=== PATIENT | male | born 1975 | race Caucasian/White ===

== ENCOUNTER 2024-07-27 14:48 | Outpatient (CLI) | payer MEDICARE, OTHER, SELFPAY ==
--- NOTE | ~2024-07-27 | XR_ITS ---
Lumbosacral Spine: AP, oblique, and lateral views Clinical History: Pain Findings: The normal lordotic curve is maintained. No fracture or sublocation. There is moderate dege nerative disc narrowing at L5-S1. There is advanced facet arthropathy at L4-L5 and L5-S1. The sacroil iac joints are normally outlined. Impression: Moderate degenerative spondylosis at the lower lumbar spine, as detailed above. Reviewed, dictated and finalized at location . Impression: Moderate degenerative spondylosis at the lower lumbar spine, as detailed above.
--- OUTSIDE RECORDS SUMMARY | 2024-07-27 15:00 | XMS_ITS | Clinical Summary ---
Author Organization [facility] Address [address] [place] [address] Care Team Providers Care Managed Care Provider Name Role Phone Dorian Garrett MD Primary Care Provider [phone] Source Comments [facility],non-owned Affiliates and Associated Physician Practices is amultiple site organization consisting of ambulatory clinics and hospital sitesin [place], [place], [place] and [place]. This disclosure is being madepursuant to the Care Everywhere program and may not contain all information available regarding this patient. 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 01/22/2015 Closed fracture of mandible 01/22/2015 Closed fracture of maxillary bone 01/22/2015 Closed fracture of facial bones 01/22/2015 Closed fracture of vault of skull 01/22/2015 Closed fracture of orbital floor 01/22/2015 Closed fracture of skull 01/22/2015 Nontraumatic subdural hemorrhage 01/22/2015 Injury 01/21/2015 Immunizations Immunization Administration Dates Next Due FLU VACCINE TRI IIV3 SPLIT PF IM (FLUVIRIN) 01/23 Social History Tobacco Use Types Packs/Day Years Used Date Smoking Tobacco: Never Smokeless Tobacco: Never Alcohol Use Standard Drinks/Week Comments No 0 (1 standard drink = 0.6 oz pur e alcohol) Sex and Gender Information Value Date Recorded Sex Assigned at Not on file Legal Sex Male 6:05 PM PRIMARY CARE COORDINATOR Gender Identity Not on file Sexual Orientation Not on file Last Filed Vital Signs Vital Sign Reading Time Taken Comments Blood Pressure 149/72 02/13/2015 5:00 PM PRIMARY CARE COORDINATOR Pulse 110 02/13/2015 5:00 PM PRIMARY CARE COORDINATOR Temperature 37.1 C (98.8 F) 02/13/2015 4:00 PM PRIMARY CARE COORDINATOR Respiratory Rate 24 02/13/2015 5:00 PM PRIMARY CARE COORDINATOR Oxygen Saturation 99% 02/13/2015 5:00 PM PRIMARY CARE COORDINATOR Inhaled Oxygen Concentration - - Weight 113 kg (249 lb 1.9 oz) 02/13/2015 2:03 AM PRIMARY CARE COORDINATOR Height 182.9 cm (6') 02/01/2015 12:00 PM PRIMARY CARE COORDINATOR Body Mass Index 33.79 02/01/2015 12:00 PM PRIMARY CARE COORDINATOR Plan of Treatment Health Maintenance Due Date Last Done Comments COLOGUARD (AGES 45-75) - COL ON CA SCREENING 1974 COLON MONITORING 1974 COLONOSCOPY - COLON CA SCREENING 1974 CT COLONOGRAPHY - COLON CA SCREENING 1974 Colorectal Cancer Screening 1974 FIT - COLON CA SCREENING 1974 FLEX SIG - COLON CA SCREENING 1974 LIPID TESTING 1974 HIV SCREENING 1989 HEPATITIS C SCREENING 11/29/1992 DTAP/TDAP/TD VACCINES (1 - Tdap) 1993 HEPATITIS B VACCINE (1 of 3 - 19+ 3-dose series) 1993 COVID-19 VACCINE (1 - 2023-2 5 season) 2023 DEPRESSION SCREENING 03/24/2024 INFLUENZA VACCINE (Season Ended) 2024 02/14/20 15 ZOSTER VACCINE (1 of 2) 2024 HIB VACCINE Aged Out No longer eligi ble based on patient's age to complete this topic HPV VACCINE Aged Out No longer eligi ble based on patient's age to complete this topic MENINGOCOCCAL (Group B) VACC INE SHARED DECISION-MAKING Aged Out No longer eligibl e based on patient's age to complete this topic MENINGOCOCCAL GROUPS A/C/Y/W VACCINE Aged Out No longer eligible b ased on patient's age to complete this topic Care Teams Managed Care Provider Relationship Specialty Start Date End Date Dorian Garrett MD PCP - General 01/20/15
== END 2024-07-27 14:49 | disposition home or self-care (01) ==
LOC: ANHIMG 14:54
PROVIDERS: PCP Family Medicine
DX: M79.604 Pain in right leg (principal); M47.896 Other spondylosis, lumbar region
CPT/HCPCS: 72110